=== PATIENT | male | born 1995 | race Two or more races ===

== ENCOUNTER 2019-06-24 23:13 | Emergency (ER) | payer MEDICAID, OTHER ==
[~2019-06-24] VITALS: Ht 175.3 cm; Wt 75.3 kg
[2019-06-24 23:23] VITALS: BP 160/97
--- NOTE | 2019-06-24 23:27 | NUR ---
biba for evaluation of anxiety and "feeling flushed" s/p using meth. pt was placed on a monitor,. VSS. will cont to monitor
[2019-06-24] MEDS ORDERED: LORAZEPAM 1 MG TABLET ONE (23:29)
[2019-06-24] MEDS ORDERED: LORAZEPAM 1 MG TABLET PO ONE (23:30)
--- NOTE | 2019-06-24 23:33 | NUR ---
pt reefused to wait and be seen by the MD. reported feeling well and does not need to be in the ER. pt is alert and ox4 w/ an srteady gait. Dr. tellez is aware. risk vsd. benefits of leaving the hospital expalined to the pt.
== END 2019-06-24 23:36 | disposition left against medical advice (07) ==
LOC: ER 23:14
DX: F19.10 Other psychoactive substance abuse, uncomplicated (principal); Z53.21 Procedure and treatment not carried out due to patient leaving prior to being seen by health care provider